=== PATIENT | female | born 1985 | race African-American/Black ===

== ENCOUNTER 2016-08-29 14:53 | Emergency (ER) | payer MEDICAID, OTHER ==
[2016-08-29 15:08] VITALS: BP 116/65
[2016-08-29] MEDS ORDERED: Dexamethasone 4 MG/ML SDV IM ONE (15:33)
[2016-08-29] MEDS ORDERED: Cyclobenzaprine 10 MG Tab PO ONE (15:34)
--- NOTE | 2016-08-29 16:19 | EDM.PDOC ---
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 Quality: Reports: Ache Severity: Severe Improves with: Reports: None Worsens with: Reports: None Associated Symptoms: Reports: No Other Symptoms Left Posterior Neck Pain Score (Numeric/FACES): 9 - Related Data Allergies Allergy/AdvReac Type Severity Reaction Status Date / Time ibuprofen Allergy Bleeding Verified 07/02/16 18:09 Home Meds: Home Meds . [No Known Home Meds] 07/02/16 [History] ED ROS GENERAL - Review of Systems Review Of Systems: ROS reveals no pertinent complaints other than HPI. ED EXAM, UPPER BACK/NECK PAIN - Physical Exam Exam: See Below Exam Limited By: No Limitations General Appearance: Alert, WD/WN, No Apparent Distress Head Exam: Atraumatic, Normocephalic Neck Exam: Other (decreased rotation to left. Near full rotation to right. Subjective muscle tightness with neck flexion. Cervical paraspinal muscle tenderness and spasms left greater than right. No visible swelling, bruising, erythema or lily deformity. Skin is intact.) Cardiovascular/Respiratory: Regular Rate, Rhythm, No M/R/G, Normal Peripheral Pulses, No JVD, Normal Breath Sounds, No Respiratory Distress Back Exam: Other (normal as above.) Extremities: Normal Inspection, Normal Range of Motion, Non-Tender, No Pedal Edema, Normal Capillary Refill Neurologic: Other (left process line operator strength, +2/4, , right groin plus 3/4.) Course - Vital Signs Last Recorded V/S: Last Vital Signs Temp 36.8 C 08/29/16 15:04 Pulse 80 08/29/16 15:04 Resp 16 08/29/16 15:04 BP 116/65 08/29/16 15:04 Pulse Ox 100 08/29/16 15:04 - Orders/Labs/Meds Orders: Active Orders 24 hr Category Date Time Status Cervical Spine 2V or 3V [CR] Urgent Exams 08/29/16 15:31 Taken Meds: Medications Discontinued Medications Generic Name Dose Route Start Last Admin Trade Name [place] PRN Reason Stop Dose Admin Cyclobenzaprine HCl 10 mg 08/29/16 15:34 08/29/16 15:51 Flexeril PO 08/29/16 15:35 10 mg ONETIME ONE Administration Dexamethasone 8 mg 08/29/16 15:33 08/29/16 15:52 Dexamethasone IM 08/29/16 15:34 8 mg ONETIME ONE Administration - Radiology Interpretation Free Text/Narrative:: C-spine x-ray: No fracture. See rad report. Departure - Departure Time of Disposition: 16:06 Disposition: Home, Self-Care 01 Condition: Good Clinical Impression: Left cervical radiculopathy Cervical strain, acute Qualifiers: Encounter type: initial encounter Qualified Code(s): S16.1XXA - Strain of muscle, fascia and tendon at neck level, initial encounter - Discharge Information Instructions: Cervical Sprain, [id number], Cervical Radiculopathy, Easy-to- Read Forms: ED Department Discharge Additional Instructions: RX: Medrol Dose Lionel. RX: Cyclobrenzaprine 10mg *Do not drive while under the influence of this medication. Moist heating pad to neck as needed. Follow up in clinic in 3-5 days for recheck. - My Orders Last 24 Hours: My Active Orders 08/29/16 15:31 Cervical Spine 2V or 3V [CR] Urgent - Assessment/Plan Last 24 Hours: My Active Orders 08/29/16 15:31 Cervical Spine 2V or 3V [CR] Urgent I have read and agree with the documentation that has been completed regarding this visit. By signing this record, I attest that the documentation was completed in my physical presence and is an accurate record of the encounter.
== END 2016-08-29 16:17 | disposition home or self-care (01) ==
LOC: DL.ED 14:53
DX: S16.1XXA Strain of muscle, fascia and tendon at neck level, initial encounter (principal); M54.12 Radiculopathy, cervical region; X50.9XXA Other and unspecified overexertion or strenuous movements or postures, initial encounter
CPT/HCPCS: 72040; 96372; 99283; A9270; J1100